=== PATIENT | male | born 1950 | race Caucasian/White ===

== ENCOUNTER 2016-07-06 16:14 | Inpatient (IN) | payer MEDICARE, OTHER ==
--- NOTE | ~2016-07-06 | PN ---
Unit #: [id number] #: [id number] Patient: SASCHA FRANK [id number] [facility] [address] [place] [address] [id number] MR#: [id number] NAME: SASCHA FRANK. ROOM: 12 Age: 66 Sex: M Admission Date: 07/06/2016 : 1950 Attending Physician: Guillermo Amado M.D. Admitting Physician: Chris Posadas PROGRESS NOTES DATE OF SERVICE: 07/09/2016 DISCUSSION Mr. Sascha Frank is a 66-year-old male, seen on 07/09/2016. The patient interviewed, chart reviewed, and obtained information from nursing staff. The patient was compliant, cooperative, able to maintain safe behavior. Denied any thoughts of harming self or others. Compliant with medication. REVIEW OF SYSTEMS Complete review of systems unremarkable. MENTAL STATUS EXAMINATION General appearance, the patient tall and well-built. Attention span and concentration, fair. Speech, regular rate. Oriented in time, place, and person. Mood and affect were sad and dysphoric, but able to smile. Speech, regular rate. Thought process, goal directed. The patient denied any thoughts of harming self or others or any psychotic symptom. Recent and remote memory, poor. Insight and judgment, poor. DIAGNOSIS Major depressive disorder, recurrent. ASSESSMENT AND PLAN Advised to continue with current therapies and treatment on the inpatient unit with a plan to consider discharge early next week. Dictated by... Chris Posadas/tequila TD: 07/10/2016 18:05 JOB #: [id number] Unit #: [id number] #: [id number] Patient: SASCHA FRANK PROGRESS NOTES Page 1 of 1 X Guillermo Amado MD X PROGRESS NOTE
--- NOTE | ~2016-07-06 | PN ---
Unit #: [id number] #: [id number] Patient: SASCHA MATHEW [id number] [facility] [address] [place] [address] [id number] I MR#: [id number] NAME: SASCHA MATHEW. ROOM: 12 Age: 66 Sex: M Admission Date: 07/06/2016 : 1950 Attending Physician: Guillermo Amado M.D. Admitting Physician: Guillermo Amado M.D. Primary Care Physician: Primary Care Physician Chapis CHANG PROGRESS NOTES DATE 07/08/2016 DISCUSSION Sascha Mathew is a 66-year-old male seen on 07/08/2016. Patient interviewed. Chart reviewed. Obtained information from nursing staff. Patient was compliant, cooperative, redirectable, able to maintain safe behavior. Vital signs 98.1, 96, 106/76. Patient reports making progress, decrease in depression, anxiety. Able to contract for safety. Complete review of system unremarkable. MENTAL STATUS EXAMINATION General appearance, patient tall, well- built. Attention span, concentration fair. Oriented in place and person. Mood and affect sad, dysphoric. Speech monotone. Thought process concrete. Patient denied any thoughts of harming self or others but guarded. Recent and remote memory poor. Insight and judgement poor. DIAGNOSES 1. Mood disorder NOS. 2. Rule out major depressive symptoms. ASSESSMENT/PLAN Advised to continue with current medication and therapeutic protocol. Will monitor response to medication and make further adjustment of medication. Dictated by... Chris Posadas/dylon TD: 07/11/2016 16:38 JOB #: [id number] Unit #: [id number] #: [id number] Patient: SASCHA MATHEW PROGRESS NOTES Page 1 of 1 X Guillermo Amado MD X PROGRESS NOTE
--- NOTE | ~2016-07-06 | HP ---
Unit #: [id number] #: [id number] Patient: SASCHA MATHEW [id number] [place] [address] [id number] I MR#: [id number] NAME: SASCHA MATHEW. ROOM: 12 Age: 66 Sex: M Admission Date: 07/06/2016 : 1950 Attending Physician: Guillermo Amado M.D. Admitting Physician: Guillermo Amado M.D. Primary Care Physician: Primary Care Physician No HISTORY AND PHYSICAL HISTORY OF PRESENT ILLNESS Sascha is a 66 year old, admitted to [address] [place] [address] with depression and verbalizing wanting to hurt himself. PAST MEDICAL HISTORY 1. High blood pressure. 2. Diabetes mellitus. 3. Benign prostatic hypertrophy. 4. Coronary artery disease. PAST SURGICAL HISTORY 1. Abdominal hernia repair. 2. Appendectomy. ALLERGIES No known drug allergies. SOCIAL HISTORY He denies cigarettes, alcohol, and illicit drug use. FAMILY HISTORY Medically noncontributory. REVIEW OF SYSTEMS CONSTITUTIONAL: No fever or chills. HEENT: Denies any sore throat, ear pain or runny nose. CARDIOVASCULAR: Denies chest pain, irregular heart rhythm or palpitations. CHEST: Denies shortness of breath or cough. No hemoptysis. GASTROINTESTINAL: Denies nausea, vomiting, diarrhea or chronic constipation. ENDOCRINE: Denies history of increased thirst or urination. No recent significant weight loss or gain. GENITOURINARY: Denies dysuria, frequency, or hematuria. SKIN: Denies any rashes. HEMATOLOGIC: Denies history of increased bleeding or bruising. MUSCULOSKELETAL: Denies any hot, swollen joints. No generalized muscle pain. NEUROLOGIC: Denies problems with vision or speech. No frequent, severe headaches. No numbness, tingling or weakness in any extremities. Denies loss of bladder or bowel control. CURRENT MEDICATIONS 1. Protonix 40 mg daily Unit #: [id number] #: [id number] Patient: SASCHA MATHEW 2. Vitamin D 1000 units daily 3. Proscar 5 mg daily 4. HCTZ 25 mg daily 5. Zoloft 200 mg daily 6. Norvasc 5 mg daily 7. Imdur ER 30 mg daily 8. Lipitor 10 mg q.h.s. 9. Benadryl 50 mg q.h.s. 10. Lyrica 75 mg b.i.d. 11. Pletal 100 mg b.i.d. 12. Milk of magnesia p.r.n. 13. Maalox p.r.n. 14. Tylenol p.r.n. 15. NovoLog per sliding scale PHYSICAL EXAMINATION GENERAL: Alert, well-nourished, no apparent distress. VITAL SIGNS: Blood pressure 106/60, heart rate 92, respirations 16, and temperature 98.6. WEIGHT: 208 pounds. HEIGHT: 6 feet 0 inches. SKIN: Warm and dry without rash or lesion. HEENT: Normocephalic. TMs not viewed. Oral and nasal passages clear. Conjunctivae clear. PERRLA. EOMs intact. NECK: Supple without lymphadenopathy or thyromegaly. HEART: Regular rate and rhythm without murmur. LUNGS: Clear. ABDOMEN: Soft, nontender. : Not done. EXTREMITIES: No evidence of cyanosis, clubbing or edema. Moves all without focal deficit. NEUROLOGICAL: Grossly within normal limits. Cranial Nerves: II: Visual marion are intact. III, IV AND : Extraocular movements are intact. Pupils are equal, round and reactive to light. V: Facial sensation is grossly normal. VII: Facial movements and expression are normal. VIII: Auditory acuity grossly intact. IX, X: Uvula is midline. Phonation is normal. XI: Patient shrugs shoulders and turns head normally. XII: Tongue protrudes in the midline. Sensory and Motor Function: Sensory and motor sensation is grossly normal. Motor: moves all extremities well. Coordination: Gait is normal. Deep Tendon Reflexes: Intact. IMPRESSION Psychiatric admission. RECOMMENDATIONS Psychiatric, per psychiatrist. MEDICAL I see no contraindications to participating in facility's activities. MEDICAL PROGNOSIS Good. MEDICAL CONDITION Stable. Unit #: [id number] #: [id number] Patient: SASCHA MATHEW Dictated by... Gay Shelton P.A.-C. for Chris Carson/fabio TD: 07/07/2016 11:38 JOB #: [id number] HISTORY AND PHYSICAL Page 1 of 1 X Gay Shelton HISTORY AND PHYSICAL
--- NOTE | ~2016-07-06 | DS ---
Unit #: [id number] #: [id number] Patient: MONTANA MATHEW [id number] [place] [address] [id number] I MR#: [id number] NAME: MONTANA MATHEW. ROOM: [facility] Age: 66 Sex: M Admission Date: 07/06/2016 : 1950 Discharge Date: 07/10/2016 Attending Physician: Guillermo Amado M.D. DISCHARGE SUMMARY REASON FOR ADMISSION Depression. DIAGNOSTIC STUDIES LABORATORY RESULTS: Remarkable for glucose 190. HOSPITAL COURSE The patient was admitted to inpatient unit on 07/06/2016 and discharged on 07/10/2016. The patient was treated on the inpatient unit with group therapy, individual therapy, medication management, and structured milieu. The patient responded well with the above modalities of treatment. The patient was continued on his home medication. Subsequently, the patient was discharged with a plan to follow up in outpatient clinic. DISCHARGE MEDICATIONS Norvasc 5 mg daily for hypertension, Benadryl 50 mg at bedtime for sleep, Protonix 40 mg daily for reflux, Lipitor 10 mg daily for high cholesterol, Lyrica 75 mg b.i.d. for pain, Proscar 5 mg daily for urinary problem, Imdur 30 mg daily for hypertension, vitamin D 1000 units daily for vitamin supplement, Oretic 25 mg daily for hypertension. DISCHARGE DIAGNOSES Psychiatric: Major depressive disorder, recurrent, severe, F33.2. Secondary diagnosis: Deferred. Medical diagnoses: Hypertension, diabetes, benign prostatic hypertrophy, coronary artery disease, history of abdominal hernia repair, and appendectomy. Stressors: Psychosocial stressor. DISCHARGE INSTRUCTIONS The patient to follow up in outpatient clinic as per manager social. CONDITION ON DISCHARGE The patient was pleasant and cooperative. Denied any psychotic symptom or any suicidal ideation. PROGNOSIS Guarded. DIET AND ACTIVITY Unit #: [id number] #: [id number] Patient: MONTANA MATHEW As tolerated. Dictated by... Chris Posadas/tequila TD: 07/10/2016 23:46 JOB #: [id number] DISCHARGE SUMMARY Page 1 of 1 X Chhibber,Guillermo Z MD X DISCHARGE SUMMARY
--- NOTE | ~2016-07-06 | CO ---
Unit #: [id number] #: [id number] Patient: MONTANA MATHEW [id number] [facility] [address] [place] [address] [id number] I MR#: [id number] NAME: MONTANA MATHEW. ROOM: 12 Age: 66 Sex: M Admission Date: 07/06/2016 : 1950 Attending Physician: Guillermo Amado M.D. Consultation Date: 07/09/2016 CONSULTATION REPORT MANISH Caicedo is a 66-year-old with diabetes. He is noncompliant with medications. Blood sugars were running in the 300 to 400 at the time of admission. ASSESSMENT Diabetes mellitus. PLAN Levemir 10 units subcu q.h.s. Routine sliding scale. Continue to monitor Accu-Cheks a.c. and h.s. Dictated by... Gay Shelton P.A.-C. for Chris Carson/tequila TD: 07/10/2016 19:03 JOB #: [id number] CONSULTATION REPORT Page 1 of 1 X Gay Shelton CONSULTATION REPORT
--- NOTE | ~2016-07-06 | PN ---
Unit #: [id number] #: [id number] Patient: SASCHA MATHEW [id number] [facility] [address] [place] [address] [id number] I MR#: [id number] NAME: SASCHA MATHEW. ROOM: 12 Age: 66 Sex: M Admission Date: 07/06/2016 : 1950 Attending Physician: Guillermo Amado M.D. Admitting Physician: Guillermo Amado M.D. Primary Care Physician: Primary Care Physician Chapis CORNEJO NOTES DATE 07/07/2016 DISCUSSION Sascha Mathew is a 66-year-old male patient, seen on 07/07/2016. The patient interviewed, chart reviewed, and obtained information from the nursing staff. The patient was compliant and cooperative. Mood sad and dysphoric, flat affect, and guarded. The patient was able to contract for safety but still isolative, guarded. REVIEW OF SYSTEMS Complete review of systems unremarkable. MENTAL STATUS EXAMINATION General appearance: Patient dressed casually. Attention span and concentration, fair. Mood and affect, sad and dysphoric. Speech, monotone. Thought process, concrete. The patient denied any thoughts of harming self or others or any psychotic symptoms. Recent and remote memory, poor. Insight and judgment, poor. DIAGNOSIS Major depressive disorder, recurrent, severe. ASSESSMENT/PLAN Advised to continue with the current medication and therapeutic protocol and will monitor response to medication, and make further adjustment of medication. Dictated by... Chris Posadas/fabio TD: 07/11/2016 06:33 JOB #: [id number] Unit #: [id number] #: [id number] Patient: SASCHA MATHEW BERNARDO PROGRESS NOTES Page 1 of 1 X Guillermo Amado MD PROGRESS NOTE
--- NOTE | ~2016-07-06 | PA ---
Unit #: [id number] #: [id number] Patient: SASCHA FRANK [id number] [facility] [address] [place] [address] [id number] I MR#: [id number] NAME: SASCHA FRANK. ROOM: [facility] Age: 66 Sex: M Admission Date: 07/06/2016 : 1950 Date of Assessment: Attending Physician: Guillermo Amado M.D. Admitting Physician: Guillermo Amado M.D. Primary Care Physician: Primary Care Physician No PSYCHIATRIC ASSESSMENT INFORMANTS The patient reliability, fair informant and chart reliability, good. CHIEF COMPLAINT Suicide attempt. HISTORY OF PRESENT ILLNESS Sascha Frank is a 66-year-old male, admitted with the above-mentioned complaint. The patient reports it was a misunderstanding. The patient according to the intake reports lives with girlfriend, 74, retired. The patient presented with suicide attempt. During assessment, the patient reported he is tired of feeling like an inconvenience to others and is tired of getting old and wanted to hurry it up. The patient reported he took a whole bottle of pills, 25 nitro, in an attempt to kill himself. The story was different than it was reported in needs assessment. The patient reported that he knows better another bottle of pill is and he will take if given the opportunity. The patient denied any history of self-harm or suicidal ideation. Denied any current thoughts or plans, but recent attempt as mentioned above. The patient reported feeling sad and depressed. Reported intrusive thoughts about wanting to kill himself. Denied any psychotic symptoms. Needing inpatient admission at this time for psychiatric stabilization. PAST PSYCHIATRIC HISTORY Unremarkable for any history of any previous treatment. FAMILY HISTORY AND SOCIAL HISTORY Unremarkable. No history of any abuse. MEDICAL HISTORY Remarkable for diabetes. Musculoskeletal; muscle strength and tone, no atrophy or abnormal movement. Gait normal. MEDICATION HISTORY The patient is on metoprolol 25 mg in the morning, Lyrica 75 mg b.i.d., Prilosec 40 mg in the morning, pravastatin 40 mg daily, cilostazol 100 mg b.i.d., hydrochlorothiazide 25 mg in the morning, finasteride 5 mg in the morning, aspirin 81 mg daily, Imdur 30 mg daily, Norvasc 5 mg in the morning, Benadryl 25 mg at bedtime, and sertraline 100 mg in the morning. ALLERGIES No known drug allergies. Unit #: [id number] #: [id number] Patient: SASCHA FRANK SUBSTANCE ABUSE HISTORY None. REVIEW OF SYSTEMS HEENT: Eyes, clear. Ears, nose, mouth, and throat; clear. CARDIOVASCULAR: Unremarkable. RESPIRATORY: Unremarkable. GI: Unremarkable. : Unremarkable. SKIN: Unremarkable. LYMPH NODE: Unremarkable. NEUROLOGIC: Unremarkable. ENDOCRINE: Unremarkable. HEMATOLOGIC: Unremarkable. ALLERGIC/IMMUNOLOGIC: Unremarkable. MUSCULOSKELETAL: Muscle strength and tone, no atrophy or abnormal movement. Gait normal. MENTAL STATUS EXAMINATION CONSTITUTIONAL: Measurement of vital signs; temperature 98.5, heart rate 92, respiratory rate 18, blood pressure 106/59, and weight 208 pounds. GENERAL APPEARANCE: The patient dressed casually. The patient did not show any facial deformity. MUSCULOSKELETAL: Please see above. PSYCHIATRIC EXAMINATION Description of speech, regular rate. Description of thought process, circumstantial. Description of association, intact. Description of abnormal psychotic thinking; the patient denied any hallucinations or delusions, but making comments about harming himself, sad, and depressed. No history of substance abuse. No psychotic symptom or any homicidal ideation. Description of the patient's judgment, concerning everyday activity, poor. Social situation, poor. Concerning psychiatric condition, poor. Complete mental status examination; oriented in time, place, and person. Recent and remote memory, fair. Attention span and concentration, fair. Language, able to name object and repeat phrases. Fund of knowledge, aware of current event and passive vocabulary intact. Mood and affect, sad and dysphoric. Insight and judgment, fair to poor. ASSETS AND LIABILITIES Assets, the patient is articulate and able to take care of his ADL. Liability, history of depression. ADMITTING DIAGNOSES Psychiatric: Major depressive disorder, recurrent, severe, F33.2. Secondary diagnosis: Deferred. Medical diagnosis: Hypertension, diabetes mellitus, benign prostatic hypertrophy, coronary artery disease, history of abdominal hernia repair, and appendectomy. Stressors: Psychosocial stressors. PSYCHIATRIC PLAN AND TREATMENT GOAL AND DISCHARGE PLAN 1. Advised to admit the patient on the inpatient unit. Provide safe, Unit #: [id number] #: [id number] Patient: SASCHA FRANK supportive, and structured environment. 2. Ordered labs; CBC, CMP, UA, and UDS. 3. Precaution for self-harm. 4. The patient to attend all the programing and continue with current medication. If needed, consider further adjustment of medication. TREATMENT GOAL To attain euthymic mood, gain insight into his problem, and learn coping skills. DISCHARGE PLAN Plan to stabilize the patient and consider followup in outpatient program. ESTIMATED LENGTH OF STAY 5 days. Dictated by... Guillermo Amado M.D. ROSALIA/tequila TD: 07/07/2016 19:02 JOB #: [id number] PSYCHIATRIC ASSESSMENT Page 1 of 1 X Guillermo Amado MD X PSYCHIATRIC ASSESSMENT
[2016-07-07 10:00] LABS: BASOPHIL% 0.5 % (0-2.5); EOSINOPHIL# 0.1 X10e3 (0-0.7); EOSINOPHIL% 1.3 % (0.0-7.0); HEMATOCRIT 48.2 % (38.0-50.0); HEMOGLOBIN 15.8 gm/dL (13.0-16.0); LYMPHOCYTE# 2.9 X10e3 (1.0-3.5); MEAN CELL VOLUME 88.6 FL (83-96); MEAN CORPUSCULAR HGB CONC 32.8 g/dL (30-36); MEAN PLATELET VOLUME 8.7 FL (6.5-11.5); MONOCYTE# 0.7 X10e3 (0-1.0); MONOCYTE% 8.2 % (3.0-12.0); PLATELET COUNT 189 X10e3 (140-420); RED BLOOD COUNT 5.44 X10e (3.90-5.60); RED CELL DISTRIBUTION WIDTH 13.8 % (11.0-15.5); WHITE BLOOD COUNT 8.7 X10e3 (4.0-10.5)
[2016-07-07 10:02] LABS: ALBUMIN SERUM 3.8 g/dL (3.5-5.0); BILIRUBIN,TOTAL 0.9 mg/dL (0.2-2.0); BUN/CREATININE RATIO 19.09; CALCIUM SERUM 9.2 mg/dL (8.4-10.2); CREATININE SERUM 1.1 mg/dL (0.6-1.4); GLOM FILT RATE Estimated 70.1 mL/min (>60); POTASSIUM 3.8 mmol/L (3.5-5.1); PROTEIN TOTAL SERUM 6.6 g/dL (6.0-8.3)
[2016-07-07 10:04] LABS: DIFF IND NO
== END 2016-07-10 09:50 | disposition home or self-care (01) | DRG 885 ==
LOC: P1S 16:14
PROVIDERS: Psychiatry & Neurology Psychiatry
DX: F33.2 Major depressive disorder, recurrent severe without psychotic features (principal); E11.9 Type 2 diabetes mellitus without complications; I10 Essential (primary) hypertension; N40.0 Benign prostatic hyperplasia without lower urinary tract symptoms; I25.10 Atherosclerotic heart disease of native coronary artery without angina pectoris; F39 Unspecified mood [affective] disorder; Z91.14 Patient's other noncompliance with medication regimen
CPT/HCPCS: 80053; 82947; 85025